=== PATIENT | female | born 1955 | race Caucasian/White ===

== ENCOUNTER 2017-03-24 11:21 | Emergency (ER) | payer OTHER ==
[~2017-03-24] VITALS: Ht 172.7 cm; Wt 89.4 kg
[~2017-03-24 11:21] MED LIST: ASPIRIN325 M2 PO; LISINOPRIL10 M1 PO; LOPRESSOR50 M1 PO; METFORMIN HCL1000 M1 PO; PERCOCET 325 MG1 TA2 PO; SIMVASTATIN40 M1 PO
--- NOTE | 2017-03-24 12:05 | ED UPPER/LOWER EXTREMITY COMPL ---
History of Present Illness General Chief Complaint: Plantar Puncture Wound Stated Complaint: RT FOOT TOE INFECTION Source: patient Exam Limitations: no limitations Vital Signs & Intake/Output Vital Signs & Intake/Output Vital Signs Date Time Temp Pulse Resp B/P B/P Pulse O2 O2 Flow FiO2 Mean Ox Delivery Rate 03/24 1241 97.1 75 16 188/82 96 Room Air 03/24 1202 Room Air 03/24 1126 98.1 92 16 186/91 97 Room Air Allergies Coded Allergies: Penicillins (Severe, RESPIRATORY DISTRESS 03/24/17) venom-honey bee (Severe, RESPIRATORY DISTRESS 03/24/17) iodine (Intermediate, RASH 03/24/17) latex (Intermediate, RASH 03/24/17) prednisone (Intermediate, RASH 03/24/17) Uncoded Allergies: CONTRAST (04/01/14) Reconcile Medications Aspirin (Aspirin*) 325 MG TABLET 1 TAB PO DAILY HEART HEALTH (Reported) Cephalexin (Keflex) 500 MG CAPSULE 1 CAP PO BID CELLULITIS OF TOE Lisinopril 10 MG TABLET 1 TAB PO DAILY BP (Reported) Metformin HCl 1,000 MG TABLET 1 TAB PO BID DIABETES (Reported) Metoprolol Tartrate (Lopressor) 50 MG TABLET 1 TAB PO BID BP (Reported) Simvastatin (Simvastatin*) 40 MG TABLET 1 TAB PO QPM CHOLESTEROL (Reported) Triage Note: PT TO ED WITH RT GREAT TOE ?INFECTION. STATES SHE CUT HER TOE LAST WEEK, HEALED UP, AND LAST NIGHT GOT A SHARP PAIN TO THE AREA. STATES SHE IS DIABETIC. AREA IS PURPLE UNDER TOE PER PT, NOT VISUALIZED IN TRIAGE. Triage Nurses Notes Reviewed? yes Onset: Gradual Duration: constant Timing: recent history Severity: moderate Severity Numbers: 5 HPI: Patient is a 61-year-old female with a past medical history of diabetes who presents emergency room stating that 3 weeks ago patient while barefoot she stepped on an unknown sharp object resulting in a laceration to the bottom of her right first great toe resulting in bleeding which patient states that the wound was well-healing however in the last 24 hours patient without a new mechanism or injury noted swelling and bruising to the region. Patient has been applying warm sitz bath no active discharge has been noted skin is intact. Denies any fever chills SHE HAS been taking ibuprofen with relief of symptoms. Past History Travel History Traveled to [place] past 21 day No Medical History Any Pertinent Medical History? see below for history Neurological: multiple sclerosis Cardiovascular: STENTS "HEART PROBLEMS" CAROTID REPLACED Endocrine: diabetes History of MRSA: No History of VRE: No History of CDIFF: No Pneumonia Vaccine: 03/31/14 Surgical History Surgical History: non-contributory Psychosocial History What is your primary language Cymraes Tobacco Use: Current Daily Use Daily Tobacco Use Amount/Type: => 5 Cigarettes daily Family History Hx Contributory? No Review of Systems Review of Systems Constitutional: Reports: no symptoms. EENTM: Reports: no symptoms. Respiratory: Reports: no symptoms. Cardiovascular: Reports: no symptoms. Gastrointestinal/Abdominal: Reports: no symptoms. Genitourinary: Reports: no symptoms. Musculoskeletal: Reports: see HPI, joint pain. Skin: Reports: see HPI. Neurological/Psychological: Reports: no symptoms. Hematologic/Endocrine: Reports: no symptoms. Immunological: Reports: no symptoms. All Other Systems: Reviewed and Negative Physical Exam Physical Exam General Appearance: no apparent distress, alert Neurologic/Tendon: normal sensation, normal motor functions, normal tendon functions, responds to pain, no evidence tendon injury, no pulse deficit Skin: intact Comments: Well-developed well-nourished no apparent distress. HEENT: Atraumatic, extraocular motion intact Neck: Supple, no lymphadenopathy Back: Nontender Respiratory: No respiratory distress Neuro: Alert and oriented x3 Psych: Mood affect normal, normal memory normal judgment. Diagram Feet Bottom 1) Noted localized swelling and ecchymosis No fluctuance no induration Moderate point tenderness noted No erythema Capillary refill intact dermatomes intact Progress Differential Diagnosis: arterial insufficiency, cellulitis, CHF, compartment syndrome, contusion, dislocation, DVT, fracture, gout, septic arthritis, sprain, tendon injury Plan of Care: On initial examination patient has no concerns of abscess or fluctuance in which no erythema or warmth is noted patient does have concerns of ecchymosis and contusion like exam FINDINGS however due to patient's diabetes per Keflex will be prophylactically prescribed. Patient was discussed with that is active FUTURE discharge was noted in the future to return to the emergency room and she will comply. Patient was strongly advised to continue with warm soaking into return to the emergency room his symptoms worsen. At this time there is no overt concerns or warranting to incise or to aspirate any concern of abscess Departure Departure Disposition: HOME OR SELF CARE Condition: Stable Clinical Impression Primary Impression: Toe pain Secondary Impressions: Cellulitis Referrals: TATIANA DURAN,DAVID Vee (PCP/Family) Additional Instructions: As discussed begin the prescription of Keflex as directed for infection prevention. If he notes worsening symptoms of fever swelling discharge OR REDNESS or warmth return to emergency room immediately or if he develop a new concerning symptom return to emergency room immediately. Perceptions waiting at [facility] pharmacy. If no better on Monday follow up with her primary care doctor and /or return to the emergency room. Departure Forms: Customer Survey General Discharge Information Prescriptions: Current Visit Scripts Cephalexin (Keflex) 1 CAP PO BID #14 CAP
[2017-03-24] MEDS ORDERED: KEFLEX500 M1 PO (12:30)
[2017-03-24 12:41] VITALS: BP 188/82
== END 2017-03-24 12:42 ==
LOC: ERH 11:21
DX: M79.674 Pain in right toe(s) (principal); L03.031 Cellulitis of right toe; E11.9 Type 2 diabetes mellitus without complications; Z79.84 Long term (current) use of oral hypoglycemic drugs

== ENCOUNTER 2017-03-26 18:46 | Emergency (ER) | payer OTHER ==
[~2017-03-26] VITALS: Ht 172.7 cm; Wt 89.4 kg
[~2017-03-26 18:46] MED LIST changes: +KEFLEX500 M1 PO
--- NOTE | 2017-03-26 20:27 | ED GENERAL ADULT ---
History of Present Illness General Chief Complaint: Lower Extremity Problems Stated Complaint: CELLULITIS RIGHT FOOT, GOING UP LEG Source: patient, family, old records Exam Limitations: no limitations Vital Signs & Intake/Output Vital Signs & Intake/Output Vital Signs Date Time Temp Pulse Resp B/P B/P Pulse O2 O2 Flow FiO2 Mean Ox Delivery Rate 03/26 2140 86 20 179/74 96 Room Air 03/26 1908 98.7 90 18 179/80 98 Room Air Allergies Coded Allergies: Penicillins (Severe, RESPIRATORY DISTRESS 03/24/17) venom-honey bee (Severe, RESPIRATORY DISTRESS 03/24/17) iodine (Intermediate, RASH 03/24/17) latex (Intermediate, RASH 03/24/17) prednisone (Intermediate, RASH 03/24/17) Iodinated Contrast- Oral and IV Dye (RASH 03/26/17) Reconcile Medications Aspirin (Aspirin*) 325 MG TABLET 1 TAB PO DAILY HEART HEALTH (Reported) Cephalexin (Keflex) 500 MG CAPSULE 1 CAP PO BID CELLULITIS OF TOE Lisinopril (Unknown Strength) TABLET (Unknown Dose) PO DAILY BP (Reported) Metformin HCl 1,000 MG TABLET 1 TAB PO BID DIABETES (Reported) Metoprolol Tartrate (Lopressor) 50 MG TABLET 1 TAB PO BID BP (Reported) Sulfamethoxazole/Trimethoprim (Bactrim Ds Tablet) 800 MG-160 MG TABLET 1 TAB PO BID cellulitis Triage Note: 61 YO FEMALE TO TRIAGE C/O CELLULITIS TO R LOWER EXTREMITY. STATES WAS HERE MONDAY AND GIVEN A SCRIPT FOR KEFLEX. STATES SHE CELLULITIS IS NOW SPREADING UP HER LEG. REDNESS NOTED TO LLUVIA MOORE. Triage Nurses Notes Reviewed? yes Onset: Gradual Duration: day(s): Timing: recent history Severity: moderate Modifying Factors: Worsens With: movement. Associated Symptoms: chills HPI: 61y/o female with h/o type 2 diabetes and CAD presents to emergency department c /o painful right great toe. Patient was seen and evaluated here on Monday and began a course of PO Keflex for cellulitis. She states the the redness, warmth, and pain of her great toe have worsened over the past two days and she now has increased swelling of her right calf with a red patch. Pain is worse with direct pressure and is so severe it keeps her from sleeping at night. She has felt intermittent chills. 2 weeks ago she injured her right great toe however did not seek medical care at that time. She notes recent "high" glucose readings on her glucometer. She denies fevers, headache, visual disturbance, N/ V/D/C, abdominal pain, dyspnea, chest pain. (NIKKI RICHARDSON) Past History Travel History Traveled to [place] past 21 day No Medical History Any Pertinent Medical History? see below for history Neurological: multiple sclerosis EENT: NONE Cardiovascular: STENTS "HEART PROBLEMS" CAROTID REPLACED Respiratory: NONE Gastrointestinal: NONE Hepatic: NONE Renal: NONE Musculoskeletal: NONE Psychiatric: NONE Endocrine: diabetes Blood Disorders: NONE Cancer(s): NONE SUPERMARKET MANAGER/Reproductive: NONE History of MRSA: No History of VRE: No History of CDIFF: No Surgical History Surgical History: non-contributory Psychosocial History What is your primary language Somali Tobacco Use: Never used Family History Hx Contributory? No (NIKKI RICHARDSON) Review of Systems Review of Systems Constitutional: Reports: see HPI. EENTM: Reports: no symptoms. Respiratory: Reports: no symptoms. Cardiovascular: Reports: no symptoms. GI: Reports: no symptoms. Genitourinary: Reports: no symptoms. Musculoskeletal: Reports: no symptoms. Skin: Reports: see HPI. Neurological/Psychological: Reports: no symptoms. Hematologic/Endocrine: Reports: no symptoms. Immunologic/Allergic: Reports: no symptoms. All Other Systems: Reviewed and Negative (NIKKI RICHARDSON) Physical Exam Physical Exam General Appearance: well developed/nourished, no apparent distress, alert, awake Head: atraumatic, normal appearance Eyes: Bilateral: normal appearance, EOMI. Ears, Nose, Throat: hearing grossly normal Neck: normal inspection, supple Respiratory: normal breath sounds, no respiratory distress, lungs clear Cardiovascular: regular rate/rhythm Gastrointestinal: soft, non-tender Back: normal inspection, normal range of motion Extremities: normal range of motion, swelling (right lower leg) Neurologic/Psych: awake, alert, oriented x 3 Skin: erythema, warmth, and tenderness over right great toe. 1x1cm pustle on plantar aspect of right great toe. 12x8cm area of erythema, warmth, and tenderness over medial right lower leg. Core Measures ACS in differential dx? No CVA/TIA Diagnosis: No Severe Sepsis Present: No Septic Shock Present: No (NIKKI RICHARDSON) Progress Differential Diagnoses I considered the following diagnoses in my evaluation of the patient: [ cellulitis, osteomyelitis, diabetic foot ulcer, peripheral arterial disease, lymphangitis, gout, septic arthritis] Plan of Care: Orders Procedure Date/time Status BLOOD CULTURE 03/26 1943 Active WESTERGREN SED RATE 03/26 1943 Complete C-REACTIVE PROTEIN 03/26 1943 Complete COMPREHENSIVE METABOLIC PANEL 03/26 1943 Complete CBC WITHOUT DIFFERENTIAL 03/26 1943 Complete Laboratory Tests 03/26/171999: Anion Gap 13, Estimated GFR > 60, BUN/Creatinine Ratio 25.0, Glucose 278 H, Calcium 9.6, Total Bilirubin 0.4, AST 18, ALT 32, Alkaline Phosphatase 144 H, C -Reactive Prot, Quant 5.8 H, Total Protein 7.0, Albumin 3.6, Globulin 3.4, Albumin/Globulin Ratio 1.1, CBC w Diff MAN DIFF ORDERED, RBC 4.66, MCV 85.2, MCH 28.1, RDW 14.0, MPV 9.9, Gran % 52.4, Lymphocytes % 37.8, Monocytes % 6.5, Eosinophils % 2.7, Basophils % 0.6, Absolute Granulocytes 6.6 H, Segmented Neutrophils 44, Band Neutrophils 3, Absolute Lymphocytes 4.8 H, Lymphocytes 41, Monocytes 8, Absolute Monocytes 0.8 H, Eosinophils 4, Absolute Eosinophils 0.3, Absolute Basophils 0.1, Platelet Estimate ADEQUATE, Normochromic RBCs VERIFIED, Anisocytosis 1+, PUBS MCHC 33.0, ESR Westergren 91 H Microbiology 03/26 2042 BLOOD: Blood Culture - RECD 03/26 2000 BLOOD: Blood Culture - RECD Diagnostic Imaging: Viewed by Me: Radiology Read. Discussed w/RAD: Radiology Read. Radiology Impression: PATIENT: ISAURA LOVE PRESENT AGE: 61 PATIENT ACCOUNT NO: [id number] : 59 LOCATION: [facility] ORDERING PHYSICIAN: NIKKI NEGRON SERVICE DATE: 03/26/17 EXAM TYPE: RAD - XRY-FOOT COMPLETE, R EXAMINATION: XR FOOT, RIGHT CLINICAL INFORMATION: 61-year- old woman with open wound and swelling. Evaluate for osteomyelitis at the great toe. COMPARISON: None TECHNIQUE: AP, lateral, and oblique views of the right foot. FINDINGS: No obvious osteolysis, or abnormal sclerosis, or periosteal reaction is seen around the great toe. There is no soft tissue gas. There is no evidence of acute fracture. Overall alignment is approximately anatomic. A tiny well-corticated ossific density is seen near the navicular bone. IMPRESSION: No convincing radiographic evidence of osteomyelitis at the great toe. DICTATED BY: ROSARIO WOODRUFF MD DATE/TIME DICTATED:03/26/172044 ASBESTOS CEMENT SHEET SUPERVISOR:JESUS DATE/TIME TRANSCRIBED:03/26/172044 CONFIDENTIAL, DO NOT COPY WITHOUT APPROPRIATE AUTHORIZATION. <Electronically signed in Other Vendor System> SIGNED BY: ROSARIO WOODRUFF MD 03/26/172049 Initial ED EKG: none (RONNELL NEGRON,NIKKI) Departure Departure Disposition: HOME OR SELF CARE Condition: Stable Clinical Impression Primary Impression: Cellulitis of great toe, right Referrals: TATIANA DURAN,DAVID Vee (PCP/Family) DORON STEVENS DPM Additional Instructions: Follow-up with sales operations provided tomorrow. He is expecting a phone call. Take Bactrim as prescribed. Return if any concerns worsening symptoms. Please go over all results of today's visit with your primary care doctor. Contact your primary care doctor to let them know you were here in the emergency room. There may be nonspecific findings which may not be related to your visit today here in the emergency room but may require further evaluation and chronic monitoring by your primary care doctor. If you had a laceration today the chance of foreign body always remains. You should follow-up with your primary care doctor for recheck in 3-5 days for a wound check. If you had an x-ray done there is a chance that a fracture could have been missed on initial read and you should follow-up with your primary care doctor for repeat x-rays if symptoms persist. If your blood pressure was elevated here in the emergency room please have rechecked by her primary care doctor within the next 48 hours by your primary care doctor. If you were prescribed a narcotic here in the emergency room or any type of controlled substances you're not allowed to drive while taking this medication or operate any type of heavy machinery. Narcotics can make you feel lightheaded dizziness nausea and can cause constipation. You may need to steel pickler a stool softener. Thank you for choosing [facility] emergency room. Please return to the emergency room immediately if you have any other concerns worsening of symptoms. Departure Forms: Customer Survey General Discharge Information Prescriptions: Current Visit Scripts Sulfamethoxazole/Trimethoprim (Bactrim Ds Tablet) 1 TAB PO BID #14 TAB Comments 03/26/[address] Stevens from podiatry. He is going to follow-up with the patient tomorrow. Patient has no evidence of osteomyelitis currently. She is nontoxic-appearing. She has a slightly elevated white count as well as an elevated ESR but she is not hypotensive or febrile. At this time I feel that adding Bactrim onto the regimen of antibiotics ankles follow-up with podiatry is appropriate. Patient would rather not be admitted to the hospital. I feel that this is a reasonable plan of care at this time. Patient was instructed to return immediately if any worsening of symptoms. She was reevaluated multiple times and continued to remain in no apparent distress. She understands and agrees with plan of care. (NIKKI RICHARDSON) PA/COMPUTER NUMERICAL CONTROL MACHINIST Co-Sign Statement Statement: ED Attending supervision documentation- [] I saw and evaluated the patient. I have also reviewed all the pertinent lab results and diagnostic results. I agree with the findings and the plan of care as documented in the PA's/COMPUTER NUMERICAL CONTROL MACHINIST's documentation. [X] I have reviewed the ED Record and agree with the PA's/COMPUTER NUMERICAL CONTROL MACHINIST's documentation. [] Additions or exceptions (if any) to the PAs/COMPUTER NUMERICAL CONTROL MACHINIST's note and plan are summarized below: [] (ROSY DURAN,JONO Hammer) Critical Care Note Critical Care Note Critical Care Time: non-applicable (NIKKI RICHARDSON)
[2017-03-26 20:35] LABS: ABSOLUTE BASOPHIL COUNT 0.1 /CUMM (0.0-0.2); ABSOLUTE EOSINOPHIL COUNT 0.3 /CUMM (0.0-0.7); ABSOLUTE GRANULOCYTE CT 6.6 /CUMM (1.4-6.5); ABSOLUTE LYMPH COUNT 4.8 /CUMM (1.2-3.4); ABSOLUTE MONOCYTE COUNT 0.8 /CUMM (0.10-0.60); BASOPHIL % 0.6 % (0.0-2.0); EOSINOPHIL % 2.7 % (0-5); GRANULOCYTE % 52.4 % (42.2-75.2); HEMATOCRIT 39.7 % (37-47); MEAN CORPUSCULAR HGB 28.1 PG (27.0-31.0); MEAN CORPUSCULAR VOLUME 85.2 FL (81.0-99.0); MEAN PLATELET VOLUME 9.9 FL (7.4-10.4); PLATELET COUNT 242 /CUMM (130-400); RED BLOOD CELL CT 4.66 /CUMM (4.20-5.40); WHITE BLOOD CELL COUNT 12.6 /CUMM (4.8-10.8)
--- NOTE | 2017-03-26 20:50 | RADIOLOGY REPORT ---
EXAMINATION: XR FOOT, RIGHT CLINICAL INFORMATION: 61-year-old woman with open wound and swelling. Evaluate for osteomyelitis at the great toe. COMPARISON: None TECHNIQUE: AP, lateral, and oblique views of the right foot. FINDINGS: No obvious osteolysis, or abnormal sclerosis, or periosteal reaction is seen around the great toe. There is no soft tissue gas. There is no evidence of acute fracture. Overall alignment is approximately anatomic. A tiny well-corticated ossific density is seen near the navicular bone. IMPRESSION: No convincing radiographic evidence of osteomyelitis at the great toe.
[2017-03-26 21:40] VITALS: BP 179/74
[2017-03-26] MEDS ORDERED: BACTRIM DS TAB1 EACH PO (21:54)
== END 2017-03-26 22:45 ==
LOC: ERH 18:46
PROVIDERS: Physician Assistant Medical
DX: L03.031 Cellulitis of right toe (principal)
CPT/HCPCS: 73630-RT; 87040; 96374